=== PATIENT | female | born 1960 | race African-American/Black ===

== ENCOUNTER 2018-10-15 22:32 | Emergency (ER) | payer OTHER ==
[~2018-10-15] VITALS: Ht 154.9 cm; Wt 89.8 kg
[2018-10-15] MEDS ORDERED: VITAMIN D5000 UNIT PO (22:47)
[2018-10-15] MEDS ORDERED: CLONIDINE HCL0.2 M2 PO (22:47)
[2018-10-15] MEDS ORDERED: BYSTOLIC 5 MG5 M1 PO (22:47)
[2018-10-15] MEDS ORDERED: ETODOLAC 400 M400 MG PO (22:48)
[2018-10-15] MEDS ORDERED: ZOLOFT25 MG PO (22:49)
[2018-10-15] MEDS ORDERED: SPIRONOLACT/HCT1 TA1 PO (22:49)
[2018-10-15] MEDS ORDERED: ATIVAN0.5 MG PO (22:49)
[2018-10-15] MEDS ORDERED: TRAMADOL 50 MG50 MG PO (22:50)
[2018-10-15] MEDS ORDERED: TYLENOL EXTRA500 MG PO (23:51)
[2018-10-16 00:05] VITALS: BP 189/100
== END 2018-10-16 00:10 | disposition home or self-care (01) ==
LOC: ER 22:32
DX: M25.561 Pain in right knee (principal); Z87.891 Personal history of nicotine dependence; Z88.5 Allergy status to narcotic agent